=== PATIENT | female | born 1975 | race Caucasian/White ===

== ENCOUNTER 2018-10-01 19:13 | Emergency (ER) | payer MEDICAID, SELFPAY ==
[2018-10-01 19:14] VITALS: BP 167/95; PULSE 84; PULSE 89; RESP 17; TEMP 37; O2SAT 98; BMI 43.8
[2018-10-01 20:15] VITALS: BP 167/99; PULSE 92; RESP 169; O2SAT 98
--- NOTE | 2018-10-01 20:26 | ED.RN ---
wounds cleaned with chlorohexadine. ice packs given. emotional support.
--- NOTE | 2018-10-01 20:51 | ED.DCSUM_ITS ---
- ER Visit Summary Date of Service: 10/01/18 Chief Complaint: Fall History of Present Illness: The patient is a 43 F who presents after a fall that occurred today. Patient states her dog pulled her over. Patient states she fell forward and landed on her face. Patient denies any loss of consciousness. Patient complains of pain over her upper lip, bridge of her nose, and chin. Patient denies any other injuries. Patient is unsure of her last tetanus shot. Physical Examination: Vital signs are stable. Patient is afebrile. Patient is in no acute distress. Skin is warm dry. There is an abrasion over the bridge of the nose and upper lip. There is minimal bleeding. There is edema and ecchymosis of the upper lip and chin. There is no bony crepitance or step-off. Teeth are intact. There is no loosening or fractures of the teeth. Neck is supple. Trachea is midline. There is no JVD noted. Heart was regular rate and rhythm. Lungs are clear and equal bilateral. Abdomen is soft. Bowel sounds are normal. There is no tenderness. Cranial nerves II through XII are intact. There are no focal motor or sensory deficits noted. The remaining physical exam is within normal limits. Emergency Department Course and Treatment: The wounds were cleaned. Patient was given a tetanus booster. She was instructed to use ice to the areas. Patient was instructed to follow-up with her primary care physician in 7-10 days. Patient understood and was agreeable with the plan. All questions were answered. Disposition: Discharge home Impression: Facial abrasions and contusions This note was generated with [employer] dictation software. It may contain incorrect words, spelling, and punctuation that were not noted in review of the chart prior to signing ED Disposition - Plan for ED Patient: Disposition: Home or Assisted Living Diagnosis: Abrasion of face, Facial contusion Instructions: ED Mechanical Fall, ED Contusion Face, ED Abrasion Referrals: Josiah López DO [Primary Care Provider] - 5-7 Days
[2018-10-01] MEDS: Diphth,Pertuss(Acell),Tet Vac 0.5 ML Vial IM (21:01)
== END 2018-10-01 21:29 | disposition home or self-care (01) ==
PROVIDERS: Emergency Provider Emergency Medicine; Family Provider Student in an Organized Health Care Education/Training Program; PCP Student in an Organized Health Care Education/Training Program
DX: S00.511A Abrasion of lip, initial encounter (principal); S00.31XA Abrasion of nose, initial encounter; W01.0XXA Fall on same level from slipping, tripping and stumbling without subsequent striking against object, initial encounter; Y93.K1 Activity, walking an animal; Y92.9 Unspecified place or not applicable; Y99.9 Unspecified external cause status; I10 Essential (primary) hypertension
CPT/HCPCS: 90471; 90715; 99282

== ENCOUNTER 2019-05-18 06:29 | Emergency (ER) | payer OTHER, MEDICAID, SELFPAY ==
[2019-05-18 06:30] VITALS: BP 131/110; PULSE 88; RESP 16; TEMP 36.8; O2SAT 95; BMI 48.6
--- NOTE | 2019-05-18 06:32 | RAD_ITS ---
STUDY: X-RAY - RIGHT HAND REASON FOR EXAM: Female, 44 years old. Pain and soft tissue swelling following trauma fourth digit. TECHNIQUE: 3 view(s) of the hand. COMPARISON: None. FINDINGS: Normal radiocarpal articulation. Normal distal radioulnar joint. Normal visualized carpal bones. Normal carpal articulations Normal carpometacarpal articulation of the thumb. Normal second through fifth carpometacarpal joints. Normal metacarpi. Normal metacarpophalangeal joint of the thumb. Normal interphalangeal joint of the thumb. Normal proximal and distal phalanges of the thumb. Normal metacarpophalangeal joints of the second through fifth fingers. Normal proximal and distal interphalangeal joints of the second through fifth fingers. Normal phalanges of the second through fifth fingers. Soft tissue swelling overlying the fourth digit. RAD/Hand Min 3 Views IMPRESSION: Soft tissue swelling involving the fourth digit. Electronically Signed: Patrick Caldera, at 8:12 EST , Service support ,
--- NOTE | 2019-05-18 06:41 | ED.VIS.GEN ---
History of Present Illness Chief Complaint: Upper Extremity Injury Informant: Patient Onset: Today Narrative: She injured her right ring finger at work. She got it caught between 2 pieces of metal. She has pain in the base of her ring finger. She has a ring on and cannot get it off. Current severity is mild. No home treatment. Past Medical History - Allergies and Home Meds Allergies/Adverse Reactions: Allergies Penicillins Allergy (Verified 05/18/19 06:35) Unknown Primary Care Physician: Josiah López DO [Primary Care Provider] - Prior records reviewed: Yes Past Medical History: - - Reviewed Lives: With Family Smoking Status: Never smoker Alcohol: None Drugs: None Review of Systems General: Denies: Chills, Fever, Sweats Eyes: Denies: Visual changes - bilaterally, Diplopia ENT: Denies: Rhinorrhea, Sore throat Cardiovascular: Denies: Chest pain, Palpitations Respiratory: Denies: Dyspnea, Cough, Dyspnea on exertion Gastrointestinal: Denies: Abdominal pain, Nausea, Vomiting, Diarrhea, Melena, Hematochezia Genitourinary: Denies: Dysuria, Hematuria, Frequency Musculoskeletal: Reports: Extremity Pain. Denies: Back pain Skin: Denies: Rash, Wounds Neurological: Denies: Headache, Weakness, Numbness Physical Exam Vital Signs/Narrative: Vital Signs Temp Pulse Resp BP Pulse Ox 05/18/19 06:30 98.3 F 88 16 131/110 H 95 General: Well nourished, Well developed, No Acute Distress Head: Normocephalic, Atraumatic Eyes: Perrl, EOMI ENT: Moist mucous membranes, No rhinorrhea Neck: Supple, Nontender Cardiovascular: Regular rate, Regular rhythm, No murmurs Respiratory: No distress, CTA bilaterally, Chest nontender Abdomen: Soft, Nontender, Nondistended, Normal bowel sounds Back: Nontender, Normal Inspection Extremities: Tenderness - This is swelling of the proximal portion of the right ring finger. Mild bruising. Ring is tight. Negative for: Nontender, No edema Skin: Normal color, No rash Neurological: Alert, Oriented x3, Cranial nerves II-XII grossly intact, Normal Strength, Normal Sensation Psychological: Normal affect, Normal Mood Diagnostic/Tx/Re-eval - Medical Decision Making I did attempt to use elastic band to remove the ring. The pain in her fingers to severe. The ring was then removed at her request. It was cut off easily. She may be able to get it re-soddered. xRay of the hand obtained. It is negative. Finger splint placed. Patient will take anti-inflammatories and follow-up as an outpatient ED Disposition - Plan for ED Patient: Diagnosis: Finger contusion Instructions: Finger Contusion Referrals: [facility] [GROUP OF PHYSICIANS] -
[2019-05-18 07:28] VITALS: BP 131/75; PULSE 62; RESP 15; O2SAT 99
== END 2019-05-18 07:30 | disposition home or self-care (01) ==
LOC: ED 07:03
PROVIDERS: Emergency Provider Emergency Medicine; Family Provider Student in an Organized Health Care Education/Training Program; PCP Student in an Organized Health Care Education/Training Program
DX: S60.041A Contusion of right ring finger without damage to nail, initial encounter (principal); W23.0XXA Caught, crushed, jammed, or pinched between moving objects, initial encounter; S60.444A External constriction of right ring finger, initial encounter; W49.04XA Ring or other jewelry causing external constriction, initial encounter; Y93.9 Activity, unspecified; Y92.9 Unspecified place or not applicable
CPT/HCPCS: 73130; 99284